=== PATIENT | male | born 1970 | race Caucasian/White ===

== ENCOUNTER 2018-10-20 09:38 | Emergency (ER) | payer SELFPAY ==
[~2018-10-20] VITALS: Ht 170.2 cm; Wt 88.0 kg
[2018-10-20] MEDS ORDERED: CHERATUSSIN PO (10:36)
[2018-10-20] MEDS ORDERED: PROAIR HFA108 MCG/AC PO (10:36)
[2018-10-20] MEDS ORDERED: PREDNISONE50 MG PO (10:36)
[2018-10-20] MEDS ORDERED: DOXYCYC MONO100 M1 PO (10:36)
[2018-10-20 10:40] VITALS: BP 147/82
== END 2018-10-20 10:50 | disposition home or self-care (01) | DRG 203 ==
LOC: ED 09:38
DX: J40 Bronchitis, not specified as acute or chronic (principal); F17.210 Nicotine dependence, cigarettes, uncomplicated

== ENCOUNTER 2018-10-28 10:40 | Emergency (ER) | payer OTHER ==
[~2018-10-28] VITALS: Ht 170.2 cm; Wt 100.0 kg
[~2018-10-28 10:40] MED LIST: CHERATUSSIN PO; DOXYCYC MONO100 M1 PO; PREDNISONE50 MG PO; PROAIR HFA108 MCG/AC PO
[2018-10-28] MEDS ORDERED: LEVAQUIN750 M1 PO (12:06)
[2018-10-28 12:23] VITALS: BP 159/88
[2018-10-28] MEDS ORDERED: CIPROFLOXACIN500 M1 PO (12:43)
== END 2018-10-28 12:48 | disposition home or self-care (01) ==
LOC: ED 10:40
DX: J32.0 Chronic maxillary sinusitis (principal); F17.200 Nicotine dependence, unspecified, uncomplicated; Z88.0 Allergy status to penicillin

== ENCOUNTER 2021-07-29 19:58 | Emergency (ER) | payer OTHER ==
[~2021-07-29] VITALS: Ht 170.2 cm; Wt 121.0 kg
[~2021-07-29 19:58] MED LIST changes: +CIPROFLOXACIN500 M1 PO; +LEVAQUIN750 M1 PO
[2021-07-29 20:31] LABS: HEMATOCRIT 48.2 % (39.0-50.0); HEMOGLOBIN 16.1 g/dl (14.0-18.0); IMMATURE GRANULOCYTES 0.1 % (0.0-5.0); MEAN CELL VOLUME 92.2 fL CALC (80.0-100.0); MEAN CORPUSCULAR HGB 30.8 pG CALC (26.0-32.0); MEAN CORPUSCULAR HGB CONC 33.4 g/dL CAL (32.0-36.0); NEUT# 5.14 thou/uL (1.82-7.42); RED BLOOD COUNT 5.23 mill/uL (4.70-6.10); RED CELL DISTRI WIDTH 13.4 % (11.5-15.5)
[2021-07-29 20:50] LABS: ALKALINE PHOSPHATASE 58 u/l (38-126); ANION GAP 15 (6-22 (CALC)); BUN 15 mg/dL (9-20); BUN/CREATININE RATIO 16 (12-20 (CALC)); CARBON DIOXIDE 25 mmol/l (22-30); CHLORIDE 105 mmol/l (95-108); ETHYL ALCOHOL 0 mg/dl (0-30); GFR FOR AFR.AMER. > 60 ML/MIN (>=60 (CALC)); GFR OTHER RACES > 60 ML/MIN (>=60 (CALC)); LIPASE 175 u/l (23-300); MAGNESIUM 1.9 mg/dL (1.6-2.3); POTASSIUM 4.3 mmol/l (3.5-5.1); SGOT/AST 36 u/l (17-59); SODIUM 141 mmol/l (137-146); TOTAL PROTEIN 6.9 g/dL (6.3-8.2)
[2021-07-29 20:51] LABS: D-DIMER 0.32 mg/L (0.19-0.60)
[2021-07-29 20:57] LABS: BILIRUBIN, TOTAL 0.6 mg/dL (0.0-1.4)
[2021-07-29 21:01] LABS: ACT PARTIAL THROMBO TIME 27.1 SECONDS (20.0-32.5); INTERNATIONAL NORMALIZED RATIO 0.9 RATIO (0.7-1.3); PROTHROMBIN TIME 9.8 SECONDS (9.0-12.5)
[2021-07-29 23:16] VITALS: BP 130/90
== END 2021-07-29 23:31 | disposition home or self-care (01) | DRG 880 ==
LOC: ED 19:58
DX: F41.9 Anxiety disorder, unspecified (principal); R73.9 Hyperglycemia, unspecified; Z87.891 Personal history of nicotine dependence; Z20.822 Contact with and (suspected) exposure to COVID-19
CPT/HCPCS: J2060; Q9967